=== PATIENT | female | born 1985 | race Caucasian/White ===

== ENCOUNTER 2016-07-07 13:20 | Emergency (ER) | payer MEDICAID | END 2016-07-07 15:11 | disposition home or self-care (01) | LOC: ER 13:20 | DX: T14.8 Other injury of unspecified body region (principal); Z79.899 Other long term (current) drug therapy; F17.210 Nicotine dependence, cigarettes, uncomplicated ==

== ENCOUNTER 2016-07-11 23:43 | Emergency (ER) | payer MEDICAID | END 2016-07-12 03:00 | disposition home or self-care (01) | LOC: ER 23:43 | DX: N92.0 Excessive and frequent menstruation with regular cycle (principal); B85.0 Pediculosis due to Pediculus humanus capitis | CPT/HCPCS: 36415; 80048; 84703; 85025 ==